=== PATIENT | male | born 1935 | race Caucasian/White ===

== ENCOUNTER 2020-01-17 09:09 | Observation (INO) | payer MEDICARE, BC ==
[~2020-01-17] VITALS: Ht 180.3 cm; Wt 74.3 kg
[~2020-01-17 09:09] MED LIST: GLUCOPHAGE1000 M1 PO; HYDR1TAB94 PO; LISI20 PO
[2020-01-17] MEDS ORDERED: FLOMAX0.4 MG PO (09:48)
[2020-01-17 10:05] LABS: BASOPHILS ABSOLUTE AUTO 0.08 K/mm3 (0.00-0.23); BASOPHILS PERCENT AUTO 1 % (0-2); EOSINOPHILS ABSOLUTE AUTO 0.09 K/mm3 (0.00-0.68); EOSINOPHILS PERCENT AUTO 1 % (0-6); Hematocrit 40.9 % (37.0-53.0); Hemoglobin 13.6 g/dL (13.5-17.5); IMMATURE GRAN ABSOLUTE AUTO 0.01 K/mm3 (0.00-0.10); IMMATURE GRAN PERCENT AUTO 0 % (0-1); LYMPHOCYTES ABSOLUTE AUTO 1.46 K/mm3 (0.84-5.20); LYMPHOCYTES PERCENT AUTO 23 % (21-46); MONOCYTES ABSOLUTE AUTO 0.62 K/mm3 (0.16-1.47); MONOCYTES PERCENT AUTO 10 % (4-13); Mean Corpuscular HGB 32.2 pg (26.0-34.0); Mean Corpuscular HGB Conc 33.3 g/dL (31.5-36.5); Mean Corpuscular Volume 97 fL (80-100); Mean Platelet Volume 9.8 fL (9.1-12.4); NEUTROPHILS ABSOLUTE AUTO 4.02 K/mm3 (1.96-9.15); NEUTROPHILS PERCENT AUTO 64 % (41-73); Platelet Count 221 K/mm3 (150-400); RDW Standard Deviation 46.1 fL (35.1-46.3); Red Blood Cell Count 4.22 M/mm3 (4.30-5.90); White Blood Cell Count 6.28 K/mm3 (4.00-11.30)
[2020-01-17 10:27] LABS: Alanine Aminotransfer (ALT/SGP 13 U/L (12-78); Albumin, Blood 3.7 g/dL (3.4-5.0); Albumin/Globulin Ratio 1.2 (0.8-1.8); Alk Phos 117 U/L (50-136); Anion Gap 4 mmol/L (6-16); Aspartate Aminotrans (AST/SGOT 16 U/L (12-37); Bilirubin, Total 0.9 mg/dL (0.1-1.0); Blood Urea Nitrogen 14 mg/dL (8-24); Bun/Creatinine Ratio 17.9 (12.0-20.0); CO2, Blood 28 mmol/L (21-32); Calcium, Blood 8.8 mg/dL (8.5-10.1); Chloride, Blood 111 mmol/L (98-108); Creatinine, Blood 0.78 mg/dL (0.60-1.20); Globulin, Blood 3.2 g/dL (2.2-4.0); Glomerular Filtration Rate >60 (60-); Glucose, Blood 88 mg/dL (70-99); Potassium, Blood 4.3 mmol/L (3.5-5.5); Sodium, Blood 143 mmol/L (136-145); Total Protein, Blood 6.9 g/dL (6.4-8.2); Troponin I <0.015 ng/mL (0.000-0.040)
[2020-01-17] MEDS ORDERED: MELATONIN5 M1 PO (13:45)
--- NOTE | 2020-01-17 18:08 | NUR ---
SHIFT SUMMARY PT ADMITTED FROM ER TODAY, BP'S HAVE IMPROVED COMPARED TO ER LEVELS. PT IS ALERT AND ORIENTEDx4. PT IS VERY WEAK WHILE ATTEMPTING TO AMBULATE AND IS UNSTEADY ON HIS FEET. PHYISCAL THERAPY ATTEMPTED TO SEE PT, HOWEVER REQUESTED TO HAVE EVAL TOMORROW. PT REPORTS DIZZINESS CONTINUES, BUT IS IMPROVED. TELEMETERY SHOWS PT TO BE IN SINUS FERMIN, RATES 40'S-50'S. OTHER VITALS HAVE BEEN STABLE.
--- NOTE | 2020-01-18 05:18 | NUR ---
SUMMARY PT REMAINS A&O X4, HE DENIES ANY SOB/CP/DIZZINESS WITH MOVEMENT. PT IS ON RA, PO HYDRALIZINE GIVEN X1, VSS, TOLERATING PO INTAKE, VOIDING WNL. BED ALARM IS ON FOR SAFETY, PT EDUCATED ON SAFETY PROTOCOL & ENC TO CALL FOR ASSISTANCE PRIOR TO SITTING AT THE BEDSIDE TO USE THE URINAL IN CASE DIZZINESS RETURNS, PT STATES UNDERSTANDING. CALL LIGHT IN REACH, WCTM & REPORT TO DAY RN.
--- NOTE | 2020-01-18 13:10 | NUR ---
Spiritual care visit conducted. Patient is sitting on a chair and alert. 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 Patient shares about the struggles in his life and how ultimately he now feels incredibly blessed. Patient tells many stories about his family unit complications and the ups and downs of his life. I normalize patient's experience, reinforce helpful attitudes and practices and provide pastoral pastoral counselor and prayer. Patient responds well and shows signs restored nicole and an elevated mood. I will continue to assist patient in discussions about his medical decisions and his process of dealing with his future.
--- NOTE | 2020-01-18 18:14 | NUR ---
SHIFT SUMMARY PT IS ALERT AND ORIENTEDx4, IS [place], BUT PT'S HEARING IMPROVED ONCE FAMILY WAS ABLE TO BRING IN HEARING AIDES. NO C/O DIZZINESS TODAY AND PT WAS ABLE TO WORK WITH PHYSICAL THERAPY AND SIT UP RIGHT IN CHAIR THIS AFTERNOON. PT REMAINS HIGH FALL RISK AND CHAIR/BED ALARMS HAVE REMAINED IN PLACE. PT'S BP WAS ELEVATED THIS MORNING, SEE EMAR FOR PRN MEDICATION, AND IMPROVED THIS AFTERNOON. PT WAS STATUS CHANGED TO MEDICAL WITHOUT TELEMETRY. PRIOR TO REMOVAL OF TELEMETRY, PT WAS IN SINUS FERMIN WITH RATES 40'S-50'S. OTHER VITALS HAVE REMAINED STABLE TODAY.
--- NOTE | 2020-01-18 19:27 | NUR ---
CARE ASSUMPTION PT MEDICAL NO TELE STATUS. A&O X4. SUQUAMISH. PLEASANT & COOPERATIVE. PT HR 50's. BP ELEVATED, WILL MEDICATE W/ SCHEDULED PO HYDRALAZINE PER ORDERS. SPO2 > 92% ON RA. PT REPORTS MULTIPLE FALLS AT HOME, DENIES KNOWING CAUSE OF FALLS. PT STATES USING BOTH CANE OR WALKER. PT REPORTS HE WILL USE CALL LIGHT FOR ASSISTANCE OOB. BED ALARM ON FOR PRECAUTION. WILL CONTINUE TO MONITOR & PROVIDE CARE.
--- NOTE | 2020-01-18 21:35 | NUR ---
TRANSFER TO MEDICAL PT TRANSFERING TO MEDICAL FLOOR, RM 326. REPORT CALLED TO ACCEPTING RN ASSUMING CARE OF PT. PT TO BE TRANSFERRED BY PCT IN WHEELCHAIR W/ BELONGINGS.
--- NOTE | 2020-01-18 21:38 | NUR ---
Transfer report from Ruby BLACKBURN in PCU on PT 84 years old who lives alone rportedly with frequent falls bradycardia & hypertensive crisis who is now better controlled & on fall precautions. Off tele now was bradycardia with PAC. 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 Reported on room air & alert. Possible DC home soon with home health services. Await admission
--- NOTE | 2020-01-19 02:39 | NUR ---
continue fall precautions. Involve Son in Dc plan. 84 year old Male who lives alone has hx of multiple falls & he was admitted after dizziness lightheadness falls. Had Head CT which shows old lac infarct. HAs EKG which showed bradycardia & PAC. PT has Son who came up from [place] to facilitate DC plan. PT has caregiver 12 hours a week who helps with household needs. PT had hypertensive emergency & marked bradycardia. On room air & on oral rx to decrese hypertensio. PCU transfer tonight able to communicate. Impusive with unsteady gait. uses cane baseline. PT says he feels comfortable to dc home with homehealth & Son's assist. No local family, says neighbors check on him. Able to use urinal sitting on edge of bed. sets off bed alarm when he attempts to get up to void.
--- NOTE | 2020-01-19 07:48 | NUR ---
MEDICATION GIVEN SLIGHTLY EARLY AT 0745 D/T SBP 176. WENT AHEAD AND ADMINISTERED THE METFORMIN AND PEPCID AT THE SAME TIME. WILL RECHECK BP IN ~ AN HOUR
--- NOTE | 2020-01-19 13:41 | NUR ---
IV REMOVED IN PREPARATION FOR PATIENT TO DISCHARGE HOME.
[2020-01-19] MEDS ORDERED: HYDRA50 PO (14:56)
--- NOTE | 2020-01-19 15:18 | NUR ---
Went over discharge instructions with the patient and his sons. All questions answered. Parul Clark Coordinator, currently in patients room talking with patient regarding needs of patient while in home. Patient to discharge home with son when complete.
--- NOTE | 2020-01-19 15:52 | NUR ---
PATIENT DISCHARGED FROM HOSPITAL AT 1552. INDOOR LANDSCAPE ARCHITECT ESCORTED PATIENT OUT TO VEHICLE VIA WHEELCHAIR WITH SON AT SIDE. PATIENT'S SON TO TRANSPORT THE PATIENT HOME.
== END 2020-01-19 15:55 | disposition home health service (06) ==
LOC: ER 09:09 → PCU 09:10 → MEDS 01-18 21:45
PROVIDERS: Emergency Medicine; ADMIT Internal Medicine
DX: I16.0 Hypertensive urgency (principal); E11.9 Type 2 diabetes mellitus without complications; M48.00 Spinal stenosis, site unspecified; G93.40 Encephalopathy, unspecified; Z79.899 Other long term (current) drug therapy; F17.210 Nicotine dependence, cigarettes, uncomplicated; Z79.84 Long term (current) use of oral hypoglycemic drugs; I10 Essential (primary) hypertension; Z88.8 Allergy status to other drugs, medicaments and biological substances
CPT/HCPCS: 36415; 70450; 80053; 82947; 84484; 85025; 93005; 93010; 96361; 96372; 96374; 97110; 97116; 97162; 97166; 97530; 99285-25; G0008; G0378; J0360; J1650; J7030; Q2038

== ENCOUNTER 2020-09-07 20:44 | Emergency (ER) | payer MEDICARE, BC ==
[~2020-09-07] VITALS: Ht 180.3 cm; Wt 75.3 kg
[~2020-09-07 20:44] MED LIST changes: +FLOMAX0.4 MG PO; +HYDRA50 PO; +MELATONIN5 M1 PO
[2020-09-07 22:03] LABS: Alanine Aminotransfer (ALT/SGP 16 U/L (12-78); Albumin, Blood 3.6 g/dL (3.4-5.0); Albumin/Globulin Ratio 1.1 (0.8-1.8); Alk Phos 115 U/L (50-136); Anion Gap 1 mmol/L (6-16); Aspartate Aminotrans (AST/SGOT 12 U/L (12-37); Bilirubin, Total 0.7 mg/dL (0.1-1.0); Blood Urea Nitrogen 22 mg/dL (8-24); Bun/Creatinine Ratio 22.8 (12.0-20.0); CO2, Blood 31 mmol/L (21-32); Calcium, Blood 8.5 mg/dL (8.5-10.1); Chloride, Blood 107 mmol/L (98-108); Creatinine, Blood 0.96 mg/dL (0.60-1.20); Globulin, Blood 3.4 g/dL (2.2-4.0); Glomerular Filtration Rate >60 (60-); Glucose, Blood 123 mg/dL (70-99); Potassium, Blood 4.2 mmol/L (3.5-5.5); Sodium, Blood 139 mmol/L (136-145)
[2020-09-08] MEDS ORDERED: ZESTRIL40 M1 PO (00:09)
== END 2020-09-08 01:20 | disposition home or self-care (01) ==
LOC: ER 20:44
PROVIDERS: Physician Assistant
DX: I10 Essential (primary) hypertension (principal); E11.40 Type 2 diabetes mellitus with diabetic neuropathy, unspecified; F17.210 Nicotine dependence, cigarettes, uncomplicated; Z88.6 Allergy status to analgesic agent; Z79.84 Long term (current) use of oral hypoglycemic drugs; Z79.899 Other long term (current) drug therapy
CPT/HCPCS: 80053; 99283

== ENCOUNTER 2020-11-28 07:50 | Emergency (ER) | payer MEDICARE, BC ==
[~2020-11-28] VITALS: Ht 180.3 cm; Wt 74.4 kg
[~2020-11-28 07:50] MED LIST changes: +ZESTRIL40 M1 PO
[2020-11-28] MEDS ORDERED: Robaxin750 MG PO (09:36)
[2020-11-28] MEDS ORDERED: HYDR1TAB94 PO (10:30)
== END 2020-11-28 12:31 | disposition home or self-care (01) ==
LOC: ER 07:50
DX: M62.830 Muscle spasm of back (principal); E11.40 Type 2 diabetes mellitus with diabetic neuropathy, unspecified; I10 Essential (primary) hypertension; Z88.6 Allergy status to analgesic agent; Z79.84 Long term (current) use of oral hypoglycemic drugs; Z79.899 Other long term (current) drug therapy; W19.XXXA Unspecified fall, initial encounter
CPT/HCPCS: 72100; 73522; 96372; 99283-25; A9270; J3010

== ENCOUNTER 2020-11-28 13:52 | Emergency (ER) | payer MEDICARE, BC ==
[~2020-11-28] VITALS: Ht 180.3 cm; Wt 74.4 kg
[~2020-11-28 13:52] MED LIST changes: +Robaxin750 MG PO
[2020-11-28 14:45] LABS: BASOPHILS ABSOLUTE AUTO 0.04 K/mm3 (0.00-0.23); BASOPHILS PERCENT AUTO 1 % (0-2); EOSINOPHILS ABSOLUTE AUTO 0.03 K/mm3 (0.00-0.68); EOSINOPHILS PERCENT AUTO 1 % (0-6); Hemoglobin 12.3 g/dL (13.5-17.5); IMMATURE GRAN ABSOLUTE AUTO 0.02 K/mm3 (0.00-0.10); IMMATURE GRAN PERCENT AUTO 0 % (0-1); LYMPHOCYTES PERCENT AUTO 20 % (21-46); MONOCYTES PERCENT AUTO 8 % (4-13); Mean Corpuscular HGB 32.2 pg (26.0-34.0); Mean Corpuscular HGB Conc 34.2 g/dL (31.5-36.5); Mean Corpuscular Volume 94 fL (80-100); Mean Platelet Volume 9.4 fL (9.1-12.4); NEUTROPHILS ABSOLUTE AUTO 4.19 K/mm3 (1.96-9.15); NEUTROPHILS PERCENT AUTO 70 % (41-73); Platelet Count 201 K/mm3 (150-400); RDW Coefficient Variation 12.8 % (11.7-14.2); RDW Standard Deviation 44.1 fL (35.1-46.3); Red Blood Cell Count 3.82 M/mm3 (4.30-5.90); White Blood Cell Count 5.98 K/mm3 (4.00-11.30)
[2020-11-28 15:00] LABS: Alanine Aminotransfer (ALT/SGP 18 U/L (12-78); Albumin, Blood 3.2 g/dL (3.4-5.0); Alk Phos 91 U/L (50-136); Anion Gap 6 mmol/L (6-16); Aspartate Aminotrans (AST/SGOT 14 U/L (12-37); Bilirubin, Total 1.1 mg/dL (0.1-1.0); Blood Urea Nitrogen 18 mg/dL (8-24); Bun/Creatinine Ratio 17.3 (12.0-20.0); CO2, Blood 28 mmol/L (21-32); Calcium, Blood 8.4 mg/dL (8.5-10.1); Chloride, Blood 105 mmol/L (98-108); Creatinine, Blood 1.04 mg/dL (0.60-1.20); Globulin, Blood 3.2 g/dL (2.2-4.0); Glomerular Filtration Rate >60 (60-); Glucose, Blood 121 mg/dL (70-99); Potassium, Blood 3.7 mmol/L (3.5-5.5); Sodium, Blood 139 mmol/L (136-145); Total Protein, Blood 6.4 g/dL (6.4-8.2); Troponin I <0.015 ng/mL (0.000-0.040)
== END 2020-11-28 17:00 | disposition home or self-care (01) ==
LOC: ER 13:52
PROVIDERS: Emergency Medicine
DX: E86.0 Dehydration (principal); I95.9 Hypotension, unspecified; Z88.6 Allergy status to analgesic agent; Z79.84 Long term (current) use of oral hypoglycemic drugs; Z79.899 Other long term (current) drug therapy; E11.40 Type 2 diabetes mellitus with diabetic neuropathy, unspecified; I10 Essential (primary) hypertension; F17.210 Nicotine dependence, cigarettes, uncomplicated
CPT/HCPCS: 80053; 82947; 84484; 85025; 93005; 93010; 99283-25